=== PATIENT | female | born 1940 | race Caucasian/White ===

== ENCOUNTER 2016-05-26 22:20 | Emergency (ER) | payer MEDICARE, OTHER ==
[~2016-05-26] VITALS: Ht 160 cm; Wt 77.1 kg
[~2016-05-26 22:20] MED LIST: ARTIFICIAL TEAR15 ML EYEBOTH; ASPIRIN325 MG PO; CARDIZEM SR120 MG PO; COLACE100 MG PO; FLOVENT DISKUS50 MCG NASBOTH; IMITREX100 MG PO; KLONOPIN1 MG PO; LINZESS290 MCG PO; LIPITOR20 MG PO; NEURONTIN300 MG PO; NEXIUM40 MG PO; NITROSTAT0.4 MG SL; PREMARIN30 GM VAG; PROPRANOLOL HCL60 M1 PO; ULTRAM50 MG PO; VENTOLIN HFA8 GM INH; ZOLOFT100 MG PO
== END 2016-05-26 23:27 | disposition short-term general hospital (02) ==
LOC: ER 22:20
DX: K64.4 Residual hemorrhoidal skin tags (principal)